=== PATIENT | female | born 1955 | race Caucasian/White ===

== ENCOUNTER → 2017-12-29 11:15 | Outpatient (CLI) | payer BC, SELFPAY ==
--- NOTE | 2017-12-29 | DI.MG.S_ITS ---
BILATERAL DIGITAL SCREENING MAMMOGRAM 3D/2D WITH CAD: 12/29/2017 CLINICAL: Routine screening. Comparison is made to exams dated: 08/01/2015 mammogram, 11/21/2016 mammogram, and 07/04/2014 mammogram - [facility]. There are scattered fibroglandular elements in both breasts. Current study was also evaluated with a Computer Aided Detection (CAD) system. There is a biopsy clip in the right breast. No significant masses, calcifications, or other findings are seen in either breast. There has been no significant interval change. IMPRESSION: NEGATIVE There is no mammographic evidence of malignancy. A 1 year screening mammogram is recommended. This exam was interpreted at Station ID: [id number]. NOTE: For mammograms, a report in lay terms will be sent to the patient. Approximately 15% of breast malignancies will not be visualized mammographically. In the management of a palpable breast mass, a negative mammogram must not discourage biopsy of a clinically suspicious lesion. Electronically Signed By: Conor river/syed:12/29/2017 15:21:27 letter sent: Normal Exam ACR BI-RADS Category 1: Negative 3341F
== END ==
PROVIDERS: PCP Internal Medicine; Visit Provider Internal Medicine
DX: Z12.31 Encounter for screening mammogram for malignant neoplasm of breast (principal)
CPT/HCPCS: 77063; 77067

== ENCOUNTER → 2018-01-30 17:53 | Outpatient (CLI) | payer BC, SELFPAY | PROVIDERS: PCP Internal Medicine; Visit Provider Physician Assistant | DX: N39.0 Urinary tract infection, site not specified (principal) | CPT/HCPCS: 87077; 87086 ==

== ENCOUNTER → 2019-02-05 11:25 | Outpatient (CLI) | payer BC, SELFPAY ==
--- NOTE | 2019-02-05 | DI.MG.S_ITS ---
BILATERAL DIGITAL SCREENING MAMMOGRAM 3D/2D WITH CAD: 02/05/2019 CLINICAL: Routine screening. Comparison is made to exams dated: 12/29/2017 mammogram, 11/21/2016 mammogram, and 08/01/2015 mammogram - [facility]. There are scattered fibroglandular elements in both breasts. Current study was also evaluated with a Computer Aided Detection (CAD) system. There is irregular equal density architectural distortion with an indistinct margin in the right breast middle depth lateral region seen on the craniocaudal view only. No other significant masses, calcifications, or other findings are seen in either breast. IMPRESSION: INCOMPLETE: NEEDS ADDITIONAL IMAGING EVALUATION The irregular equal density architectural distortion in the right breast is indeterminate. Mediolateral and spot compression views as well as additional views with possible ultrasound are recommended. This exam was interpreted at Station ID: [id number]. NOTE: For mammograms, a report in lay terms will be sent to the patient. Approximately 15% of breast malignancies will not be visualized mammographically. In the management of a palpable breast mass, a negative mammogram must not discourage biopsy of a clinically suspicious lesion. Electronically Signed By: Osiel gandhi/syed:02/05/2019 16:51:13 letter sent: Additional Imaging Needed ACR BI-RADS Category 0: Incomplete 3340F
== END ==
PROVIDERS: PCP Internal Medicine; Visit Provider Internal Medicine
DX: Z12.31 Encounter for screening mammogram for malignant neoplasm of breast (principal)
CPT/HCPCS: 77063; 77067

== ENCOUNTER → 2019-02-17 14:22 | Outpatient (CLI) | payer BC, SELFPAY ==
--- NOTE | 2019-02-17 | DI.MG.S_ITS ---
UNILATERAL RIGHT DIGITAL DIAGNOSTIC MAMMOGRAM 3D/2D WITH ADDITIONAL VIEWS: 02/17/2019 CLINICAL: Additional evaluation requested from prior study. Comparison is made to exams dated: 02/05/2019 mammogram, 12/29/2017 mammogram, 11/21/2016 mammogram, 08/01/2015 mammogram, and 07/04/2014 mammogram - [facility]. There are scattered fibroglandular elements in right breast. With additional views, the abnormality seen on screening mammogram is much less prominent, but minimally persists. This area is similar to architecture seen on multiple prior mammograms. No significant masses, calcifications, or other findings are seen in the breast. IMPRESSION: INCOMPLETE: NEEDS ADDITIONAL IMAGING EVALUATION Partial resolution of screening mammography abnormality in the right breast with additional views. Ultrasound evaluation to confirm resolution is recommended and was performed immediately following this exam. This exam was interpreted at Station ID: [id number]. NOTE: For mammograms, a report in lay terms will be sent to the patient. Approximately 15% of breast malignancies will not be visualized mammographically. In the management of a palpable breast mass, a negative mammogram must not discourage biopsy of a clinically suspicious lesion. Electronically Signed By: Ranjana cabrera/:02/17/2019 15:14:21 ACR BI-RADS Category 0: Incomplete 3340F
--- NOTE | 2019-02-17 | DI.US.S_ITS ---
ULTRASOUND OF RIGHT BREAST: 02/17/2019 CLINICAL: Patient returns today to evaluate an architectural distortion in the right breast. Comparison is made to exams dated: 02/17/2019 mammogram, 02/05/2019 mammogram, 12/29/2017 mammogram, and 11/21/2016 mammogram - [facility]. Real-time ultrasound of the right breast was performed. Rose scale images of the real-time examination were reviewed. No abnormalities were seen sonographically in the right breast. IMPRESSION: PROBABLY BENIGN Partial resolution of screening mammography abnormality with additional views. Ultrasound evaluation revealed no sonographic correlate. This area is probably benign. A follow-up mammogram in 6 months is recommended to demonstrate stability. Findings and recommendations were conveyed to the patient at time of exam. This exam was interpreted at Station ID: [id number]. Electronically Signed By: Ranjana cabrera/:02/17/2019 15:15:43 letter sent: Followup Recommended Ultrasound BI-RADS: 3 Probably benign
== END ==
PROVIDERS: PCP Internal Medicine; Visit Provider Internal Medicine
DX: R92.8 Other abnormal and inconclusive findings on diagnostic imaging of breast (principal)
CPT/HCPCS: 76642; 77065; G0279

== ENCOUNTER → 2019-08-19 14:45 | Outpatient (CLI) | payer BC, SELFPAY ==
--- NOTE | 2019-08-19 | DI.MG.S_ITS ---
UNILATERAL RIGHT DIGITAL DIAGNOSTIC MAMMOGRAM 3D/2D SHORT-TERM FOLLOW-UP: 08/19/2019 CLINICAL: Patient returns for a 6 month follow up of the right breast. Comparison is made to exams dated: 02/17/2019 mammogram, 02/05/2019 mammogram, 12/29/2017 mammogram, 02/17/2019 ultrasound, 11/21/2016 mammogram, and 08/01/2015 mammogram - [facility]. There are scattered fibroglandular elements in right breast. There is an irregular equal density asymmetry in the right breast middle depth lateral region seen on the craniocaudal view only is less prominent. Possible architectural distortion associated with the asymmetry is also less prominent. No other significant masses or calcifications are seen in the breast. IMPRESSION: PROBABLY BENIGN The irregular equal density asymmetry in the right breast is less prominent and is probably benign. A follow-up mammogram and possible ultrasound in 6 months is recommended to demonstrate continued stability. This exam was interpreted at Station ID: [id number]. NOTE: For mammograms, a report in lay terms will be sent to the patient. Approximately 15% of breast malignancies will not be visualized mammographically. In the management of a palpable breast mass, a negative mammogram must not discourage biopsy of a clinically suspicious lesion. Electronically Signed By: Tamir Osman M.D. slc/:08/19/2019 16:54:26 letter sent: Followup Recommended ACR BI-RADS Category 3: Probably benign 3343F
== END ==
PROVIDERS: PCP Internal Medicine; Visit Provider Internal Medicine
DX: R92.8 Other abnormal and inconclusive findings on diagnostic imaging of breast (principal); N64.89 Other specified disorders of breast
CPT/HCPCS: 77065; G0279

== ENCOUNTER → 2019-08-20 08:59 | Outpatient (CLI) | payer BC, SELFPAY ==
[2019-08-20 10:11] LABS: Aspartate Aminotransferase 19 IU/L (14-36); BUN Creatinine Ratio 18.6 (6-22); Blood Urea Nitrogen 13 mg/dL (7-17); Calcium 9.7 mg/dL (8.4-10.2); Carbon Dioxide 27 mmol/L (22-32); Chloride 100 mmol/L (98-107); Cholesterol 271 mg/dL (140-199); Estimated Glomerular Filt Rate > 60.0 mL/min (>60); Glucose 90 mg/dL (80-110); HDL Cholesterol 87 mg/dL (40-60); HEMOLYSIS < 15 (0-50); LDL Cholesterol Calculated 170 mg/dL (<100); Potassium 4.5 mmol/L (3.4-5.1); Sodium 137 mmol/L (137-145); Triglycerides 71 mg/dL (35-150)
[2019-08-20 10:28] LABS: TSH w/ Reflex to FT4 1.42 uIU/mL (0.47-4.68)
== END ==
PROVIDERS: PCP Internal Medicine; Visit Provider Internal Medicine
DX: I10 Essential (primary) hypertension (principal); E78.2 Mixed hyperlipidemia; E03.9 Hypothyroidism, unspecified
CPT/HCPCS: 36415; 80048; 80061; 84443; 84450

== ENCOUNTER → 2020-03-22 09:26 | Outpatient (CLI) | payer MEDICARE, BC, SELFPAY ==
--- NOTE | 2020-03-22 09:44 | DI.MG.S_ITS ---
Patient Name: YASMANI GONZALEZ date: 1955 Sex: F Attending Physician: Angel Indications: Date: 03/22/2020 09:37 At the request of: ELIZABETH MARI Procedure: MM diagnostic mammo BI BILATERAL DIGITAL DIAGNOSTIC MAMMOGRAM 3D/2D SHORT-TERM FOLLOW-UP: 03/22/2020 CLINICAL: Patient returns for a 12 month follow up of the right breast, due for bilateral exam. Comparison is made to exams dated: 08/19/2019 mammogram, 02/17/2019 mammogram, and 02/05/2019 mammogram - [facility]. There are scattered fibroglandular elements in both breasts. The previously described irregular equal density asymmetry in the right breast middle depth lateral region seen on the craniocaudal view only appears less prominent and decreased in size. Previously described associated architectural distortion is not appreciated on today's exam. No other significant masses, calcifications, or other findings are seen in either breast. IMPRESSION: INCOMPLETE: NEEDS ADDITIONAL IMAGING EVALUATION The previously described irregular equal density asymmetry in the right breast appears less prominent and is probably benign. However, an ultrasound is recommended for further evaluation and is scheduled to immediately follow this study. This exam was interpreted at Station ID: [id number]. NOTE: For mammograms, a report in lay terms will be sent to the patient. Approximately 15% of breast malignancies will not be visualized mammographically. In the management of a palpable breast mass, a negative mammogram must not discourage biopsy of a clinically suspicious lesion. Electronically Signed By: Tarun Jon M.D. aty/:03/22/2020 10:04:16 ACR BI-RADS Category 0: Incomplete 3340F Continued Report - Page 2 of 2 Patient Name: YASMANI GONZALEZ date: 1955 Sex: F Attending Physician: Angel Indications: Date: 03/22/2020 09:37 At the request of: ELIZABETH MARI Procedure: MM diagnostic mammo BI
--- NOTE | 2020-03-22 10:19 | DI.US.S_ITS ---
Patient Name: YASMANI GONZALEZ date: 1955 Sex: F Attending Physician: Angel Indications: Date: 03/22/2020 10:26 At the request of: ELIZABETH MARI Procedure: US breast RT limited ULTRASOUND OF RIGHT BREAST: 03/22/2020 CLINICAL: Patient returns for a 6 month follow up of the right breast. Comparison is made to exams dated: 03/22/2020 mammogram, 08/19/2019 mammogram, 02/17/2019 ultrasound, 02/17/2019 mammogram, 02/05/2019 mammogram, and 12/29/2017 mammogram - [facility]. Real-time ultrasound of the right breast was performed. Rose scale images of the real-time examination were reviewed. No significant abnormalities were seen sonographically in the right breast. IMPRESSION: BENIGN There is no sonographic evidence of malignancy. There is no abnormality seen in the right breast to correspond with the previously described asymmetry and possible architectural distortion on mammography which likely represent normal fibroglandular tissue. A follow-up mammogram with possible ultrasound in 12 months is recommended. Findings and recommendations were conveyed to the patient during today's visit. This exam was interpreted at Station ID: [id number]. Electronically Signed By: Tarun Jon M.D. aty/:03/22/2020 10:55:37 letter sent: Followup Recommended Ultrasound BI-RADS: 2 Benign Continued Report - Page 2 of 2 Patient Name: YASMANI GONZALEZ date: 1955 Sex: F Attending Physician: Angel Indications: Date: 03/22/2020 10:26 At the request of: ELIZABETH MARI Procedure: US breast RT limited
== END ==
PROVIDERS: PCP Internal Medicine; Referring Provider Internal Medicine; Visit Provider Internal Medicine
DX: R92.8 Other abnormal and inconclusive findings on diagnostic imaging of breast (principal)
CPT/HCPCS: 76642; 77066; G0279

== ENCOUNTER → 2020-08-31 14:44 | Outpatient (ROUT) | payer MEDICARE, BC, SELFPAY ==
[2020-08-31 15:30] LABS: Add Manual Diff / Slide Review NO; Basophils Absolute Auto 100 /uL (0-100); Eosinophils Absolute Auto 100 /uL (0-450); Eosinophils Percent Auto 2.4 % (2-4); Lymphocytes Absolute Auto 1500 /uL (1100-4500); Lymphocytes Percent Auto 24.4 % (25-40); Mean Corpuscular HGB Conc 33.4 % (30-36); Mean Corpuscular Hemoglobin 29.6 PG (26-34); Mean Corpuscular Volume 88.5 fL (80-100); Monocytes Absolute Auto 700 /uL (0-900); Monocytes Percent Auto 10.9 % (3-14); Neutrophils Absolute Auto 3700 /uL (1500-7000); Neutrophils Percent Auto 61.3 % (50-75); Platelet Count 256 X10^3/uL (150-400); Red Blood Cell Count 4.74 X10^6/uL (4.0-5.2); Red Cell Distribution Width 12.5 % (11.6-14.8)
[2020-08-31 15:50] LABS: Aspartate Aminotransferase 28 IU/L (14-36); BUN Creatinine Ratio 20.3 (6-22); Blood Urea Nitrogen 14 mg/dL (7-17); Carbon Dioxide 29 mmol/L (22-32); Chloride 101 mmol/L (98-107); Cholesterol 271 mg/dL (140-199); Estimated Glomerular Filt Rate > 60.0 mL/min (>60); Glucose 97 mg/dL (80-110); HDL Cholesterol 103 mg/dL (40-60); HEMOLYSIS 25 (0-50); LDL Cholesterol Calculated 153 mg/dL (<100); Potassium 5.2 mmol/L (3.4-5.1); Sodium 135 mmol/L (137-145); Triglycerides 73 mg/dL (35-150)
[2020-08-31 16:16] LABS: TSH w/ Reflex to FT4 1.13 uIU/mL (0.47-4.68)
== END ==
PROVIDERS: PCP Internal Medicine; Visit Provider Internal Medicine
DX: I10 Essential (primary) hypertension (principal); E78.2 Mixed hyperlipidemia; E03.9 Hypothyroidism, unspecified
CPT/HCPCS: 80048; 80061; 84443; 84450; 85025

== ENCOUNTER → 2020-09-27 10:09 | Outpatient (CLI) | payer MEDICARE, BC, SELFPAY | PROVIDERS: PCP Internal Medicine; Referring Provider Internal Medicine; Visit Provider Internal Medicine | DX: M85.88 Other specified disorders of bone density and structure, other site (principal); Z78.0 Asymptomatic menopausal state; E07.9 Disorder of thyroid, unspecified; Z82.62 Family history of osteoporosis | CPT/HCPCS: 77080 ==

== ENCOUNTER → 2021-03-06 08:41 | Outpatient (CLI) | payer MEDICARE, BC, SELFPAY ==
--- NOTE | 2021-03-06 | DI.MG.S_ITS ---
BILATERAL DIGITAL DIAGNOSTIC MAMMOGRAM 3D/2D: 03/06/2021 CLINICAL: Short term follow up of the right breast, due for bilateral imaging. Comparison is made to exams dated: 03/22/2020 ultrasound, 03/22/2020 mammogram, 08/19/2019 mammogram, 02/17/2019 mammogram, 12/29/2017 mammogram, and 11/21/2016 mammogram - [facility]. There are scattered fibroglandular elements in both breasts. With additional views, the abnormality seen on screening mammogram is no longer apparent. There is a stable irregular equal density asymmetry in the right breast middle depth lateral region seen on the craniocaudal view only. This was not seen on the prior ultrasounds. No other significant masses, calcifications, or other findings are seen in either breast. IMPRESSION: BENIGN There is no mammographic evidence of malignancy. Asymmetry in the right breast demonstrates long-term stability and is consistent with overlapping fibroglandular tissue and is benign. A 1 year screening mammogram is recommended. Exam findings were conveyed to the patient. This exam was interpreted at Station ID: [id number]. NOTE: For mammograms, a report in lay terms will be sent to the patient. Approximately 15% of breast malignancies will not be visualized mammographically. In the management of a palpable breast mass, a negative mammogram must not discourage biopsy of a clinically suspicious lesion. Electronically Signed By: Tmair Osman M.D. slc/:03/06/2021 10:12:10 letter sent: Normal Exam ACR BI-RADS Category 2: Benign Finding(s) 3342F
== END ==
PROVIDERS: PCP Internal Medicine; Referring Provider Internal Medicine; Visit Provider Internal Medicine
DX: N64.89 Other specified disorders of breast (principal); R92.8 Other abnormal and inconclusive findings on diagnostic imaging of breast
CPT/HCPCS: 77066; G0279

== ENCOUNTER → 2022-03-26 09:59 | Outpatient (CLI) | payer MEDICARE, BC, SELFPAY ==
--- NOTE | 2022-03-26 | DI.MG.S_ITS ---
BILATERAL DIGITAL SCREENING MAMMOGRAM 3D/2D WITH CAD: 03/26/2022 CLINICAL: Routine screening. Comparison is made to exams dated: 03/06/2021 mammogram, 03/22/2020 mammogram, and 02/05/2019 mammogram - [facility]. There are scattered areas of fibroglandular density in both breasts (category b / 25%-50% glandular tissue). Current study was also evaluated with a Computer Aided Detection (CAD) system. There is a biopsy clip in the right breast. No significant masses, calcifications, or other findings are seen in either breast. There has been no significant interval change. IMPRESSION: NEGATIVE There is no mammographic evidence of malignancy. A 1 year screening mammogram is recommended. Based on the Tyrer Cuzick model (a risk assessment model) the patient's lifetime risk is 6.6% and her 10 year risk is 3.5%. According to the ACR, ACS, and NCCN guidelines, an annual breast MRI exam along with mammogram is recommended if the patient's lifetime risk is 20% or greater. This exam was interpreted at Station ID: [id number]. NOTE: For mammograms, a report in lay terms will be sent to the patient. Approximately 15% of breast malignancies will not be visualized mammographically. In the management of a palpable breast mass, a negative mammogram must not discourage biopsy of a clinically suspicious lesion. Electronically Signed By: Ranjana cabrera/syed:03/26/2022 13:03:34 letter sent: Normal Exam ACR BI-RADS Category 1: Negative 3341F
== END ==
PROVIDERS: PCP Internal Medicine; Referring Provider Internal Medicine; Visit Provider Internal Medicine
DX: Z12.31 Encounter for screening mammogram for malignant neoplasm of breast (principal)
CPT/HCPCS: 77063; 77067

== ENCOUNTER → 2023-07-12 09:24 | Outpatient (CLI) | payer MEDICARE, BC, SELFPAY ==
--- NOTE | 2023-07-12 | DI.MG.S_ITS ---
BILATERAL DIGITAL SCREENING MAMMOGRAM 3D/2D WITH CAD: 07/12/2023 CLINICAL: Routine screening. Comparison is made to exams dated: 03/26/2022 mammogram, 03/06/2021 mammogram, 03/22/2020 mammogram, 02/05/2019 mammogram, 02/17/2019 mammogram, and 08/19/2019 mammogram - [facility]. There are scattered areas of fibroglandular density in both breasts (category b / 25%-50% glandular tissue). Current study was also evaluated with a Computer Aided Detection (CAD) system. There is an asymmetry in the right breast anterior depth superior region seen on the mediolateral oblique view only. No other significant masses, calcifications, or other findings are seen in either breast. IMPRESSION: INCOMPLETE: NEEDS ADDITIONAL IMAGING EVALUATION The asymmetry in the right breast is indeterminate. Additional views with possible ultrasound are recommended. Based on the Tyrer Cuzick model (a risk assessment model) the patient's lifetime risk is 6.2% and her 10 year risk is 3.5%. According to the ACR, ACS, and NCCN guidelines, an annual breast MRI exam along with mammogram is recommended if the patient's lifetime risk is 20% or greater. This exam was interpreted at Station ID: [id number]. NOTE: For mammograms, a report in lay terms will be sent to the patient. Approximately 15% of breast malignancies will not be visualized mammographically. In the management of a palpable breast mass, a negative mammogram must not discourage biopsy of a clinically suspicious lesion. Electronically Signed By: Christie salcido/syed:07/14/2023 14:16:13 letter sent: Additional Imaging Needed ACR BI-RADS Category 0: Incomplete 3340F
== END ==
PROVIDERS: PCP Nurse Practitioner; Referring Provider Nurse Practitioner; Visit Provider Nurse Practitioner
DX: Z12.31 Encounter for screening mammogram for malignant neoplasm of breast (principal)
CPT/HCPCS: 77063; 77067

== ENCOUNTER → 2023-07-24 11:44 | Outpatient (CLI) | payer MEDICARE, BC, SELFPAY ==
--- NOTE | 2023-07-24 12:01 | DI.DEXA.S_ITS ---
Bone Density Report Name: YASMANI GONZALEZ Age: 68 Sex: Female Ethnicity: White Date of : 1955 Indication: osteopenia; prior fracture; Referring Provider: ASCENCION CONTRERAS Study: Bone densitometry was performed. Exam Date: July 24, 2023 Accession number: [id number] Bone Density: Region BMD T-score Z-score Classification AP Spine(L1, L2, L4) 0.781 -2.3 -0.3 Osteopenia Femoral Neck (Left) 0.608 -2.2 -0.5 Osteopenia Total Hip (Left) 0.767 -1.4 0.0 Osteopenia Femoral Neck (Right) 0.599 -2.2 -0.5 Osteopenia Total Hip (Right) 0.733 -1.7 -0.3 Osteopenia Total Hip Mean 0.750 -1.6 -0.2 Osteopenia World Health Organization criteria for BMD impression classify patients as: Normal (T-score at or above -1.0), Osteopenia (T-score between -1.0 and -2.5), or Osteoporosis (T-score at or below -2.5). 10-year Fracture Risk: FRAX not reported because: Prior hip or vertebral fracture Previous Exams: -- Region Exam Age BMD T-score BMD Change BMD Change Date g/cm2 vs Baseline vs Previous -- AP Spine (L1-L2,L4) 07/24/2023 68 0.781 -2.3 -0.099 (-11.2%)# -0.056 (-6.7%)# 09/27/2020 65 0.837 -1.8 -0.043 (-4.8%)* -0.043 (-4.8%)* 08/01/2005 50 0.880 -1.4 Total Hip(Left) 07/24/2023 68 0.767 -1.4 -0.117 (-13.2%)# -0.040 (-5.0%)# 09/27/2020 65 0.807 -1.1 -0.077 (-8.7%)* -0.077 (-8.7%)* 08/01/2005 50 0.883 -0.5 Total Hip(Right) 07/24/2023 68 0.733 -1.7 -0.146 (-16.7%)# -0.044 (-5.7%)# 09/27/2020 65 0.777 -1.4 -0.102 (-11.6%)* -0.102 (-11.6%)* 08/01/2005 50 0.879 -0.5 -- *Denotes significance at 95% confidence level, LSC for AP Spine = 0.022 g/cm2, LSC for Total Hip = 0.027 g/cm2 Rate of change results reflect vertebral levels common to all scans # Denotes dissimilar scan types or analysis methods Impression: The patient has low bone mass, based on the Total Spine T-score. The patient has risk factors, including: previous fracture. No significant bone loss was observed. Discussion: INCREASED RISK OF FRACTURE DUE TO HISTORY OF FRACTURE. The patient's previous fracture puts the patient at high risk of a future fracture. In untreated patients, the risk of osteoporotic fracture increases approximately two-fold for each 1.0 SD decrease in T-score. Low bone density is not the only risk factor for fracture; also consider factors such as patient's age, frailty or poor health, risk of falling, risk of injury, previous osteoporotic fracture, family history of osteoporosis, cigarette smoking, low body weight, etc. Not everyone with a low trauma fracture has osteoporosis; osteomalacia and other metabolic bone disorders should also be considered. Patients who have osteoporosis should be evaluated for specific diseases and conditions (secondary causes) that may cause or contribute to bone loss and fracture risk. National Osteoporosis Foundation (NOF) recommends pharmacologic intervention for patients with a prior hip or vertebral fracture regardless of BMD T-score. The patient should follow a healthful lifestyle (good nutrition with adequate calcium and vitamin D, and appropriate weight-bearing exercise). Follow-Up: Consider a repeat BMD and Vertebral Fracture Assessment (VFA) exam in 2 years or sooner if medically necessary, to reassess this patient's status. Reported by: FRANSISCA RUIZ M.D. on 07/24/2023 12:09:00 PM.
== END ==
PROVIDERS: PCP Nurse Practitioner; Referring Provider Nurse Practitioner; Visit Provider Nurse Practitioner
DX: M85.88 Other specified disorders of bone density and structure, other site (principal); Z78.0 Asymptomatic menopausal state; Z87.311 Personal history of (healed) other pathological fracture
CPT/HCPCS: 77080

== ENCOUNTER → 2023-07-25 08:44 | Outpatient (CLI) | payer MEDICARE, BC, SELFPAY ==
--- NOTE | 2023-07-25 08:45 | DI.MG.S_ITS ---
UNILATERAL RIGHT DIGITAL DIAGNOSTIC MAMMOGRAM 3D/2D WITH ADDITIONAL VIEWS: 07/25/2023 CLINICAL: Additional evaluation requested from prior study. Comparison is made to exams dated: 07/12/2023 mammogram, 03/26/2022 mammogram, 03/06/2021 mammogram, and 03/22/2020 mammogram - [facility]. 12/29/2017 There are scattered areas of fibroglandular density in the right breast (category b / 25%-50% glandular tissue). There is a mass in the right breast seen on the craniocaudal view only. There also is an asymmetry in the right breast anterior depth superior region seen on the mediolateral oblique view only. This is less prominent. No other significant masses or calcifications are seen in the breast. IMPRESSION: INCOMPLETE: NEEDS ADDITIONAL IMAGING EVALUATION The asymmetry in the right breast anterior depth superior region seen on the mediolateral oblique view only is indeterminate. An ultrasound is recommended. This is less prominent on additional views and also similar compared to 2018 mammogram. Based on the Tyrer Cuzick model (a risk assessment model) the patient's lifetime risk is 6.2% and her 10 year risk is 3.5%. According to the ACR, ACS, and NCCN guidelines, an annual breast MRI exam along with mammogram is recommended if the patient's lifetime risk is 20% or greater. This exam was interpreted at Station ID: [id number]. NOTE: For mammograms, a report in lay terms will be sent to the patient. Approximately 15% of breast malignancies will not be visualized mammographically. In the management of a palpable breast mass, a negative mammogram must not discourage biopsy of a clinically suspicious lesion. Electronically Signed By: Alfredo Jorge M.D. lc/:07/25/2023 09:40:50 ACR BI-RADS Category 0: Incomplete 3340F
--- NOTE | 2023-07-25 08:45 | DI.US.S_ITS ---
PROCEDURE: US BREAST RT LIMITED COMPARISON: [facility], BREAST RT LIMITED, 03/22/2020, 10:19. INDICATIONS: abnormal mammogram, right breast FINDINGS: IMPRESSION: Dictated by: Alfredo Jorge M.D. on 07/25/2023 at 9:41 Approved by: Alfredo Jorge M.D. on 07/25/2023 at 9:41
--- NOTE | 2023-07-25 09:26 | DI.US.S_ITS ---
Patient Name: YASMANI GONZALEZ date: 1955 Sex: F Attending Physician: Balta Indications: Date: 07/25/2023 09:41 At the request of: ASCENCION CONTRERAS Procedure: US breast RT limited ULTRASOUND OF RIGHT BREAST: 07/25/2023 CLINICAL: Patient returns today to evaluate a focal asymmetry in the right breast. Comparison is made to exams dated: 07/25/2023 mammogram, 07/12/2023 mammogram, 03/26/2022 mammogram, and 03/06/2021 mammogram - [facility]. Color flow and real-time ultrasound of the right breast were performed. Rose scale images of the realtime examination were reviewed. No significant abnormalities were seen sonographically in the right breast. IMPRESSION: NEGATIVE There is no sonographic evidence of malignancy. There is no abnormality seen in the right breast to correspond with the mammography finding. Return to annual mammogram screening schedule is recommended. This exam was interpreted at Station ID: [id number]. Electronically Signed By: Alfredo Jorge M.D. lc/:07/25/2023 09:41:43 letter sent: Normal Exam Ultrasound BI-RADS: 1 Negative
== END ==
PROVIDERS: PCP Nurse Practitioner; Referring Provider Nurse Practitioner; Visit Provider Nurse Practitioner
DX: R92.8 Other abnormal and inconclusive findings on diagnostic imaging of breast (principal); N64.89 Other specified disorders of breast
CPT/HCPCS: 76642; 77065; G0279

== ENCOUNTER → 2023-10-21 09:23 | Outpatient (CLI) | payer MEDICARE, BC, SELFPAY ==
[2023-10-21 10:51] LABS: Alanine Aminotransferase 24 IU/L (<35); Albumin 4.4 g/dL (3.5-5.0); Albumin Globulin Ratio 1.5 (1.0-2.8); Alkaline Phosphatase 47 U/L (38-126); Aspartate Aminotransferase 25 IU/L (14-36); Bilirubin Total 0.7 mg/dL (0.2-1.3); Blood Urea Nitrogen 12 mg/dL (7-17); Calcium 9.4 mg/dL (8.4-10.2); Carbon Dioxide 27 mmol/L (22-32); Chloride 103 mmol/L (98-107); Cholesterol 173 mg/dL (140-199); Estimated Glomerular Filt Rate > 60 mL/min (>60); Glucose 95 mg/dL (80-110); HDL Cholesterol 94 mg/dL (40-60); HEMOLYSIS < 15 (0-50); LDL Cholesterol Calculated 67 mg/dL (<100); Potassium 4.5 mmol/L (3.4-5.1); Sodium 136 mmol/L (137-145); Total Protein 7.4 g/dL (6.3-8.2); Triglycerides 61 mg/dL (35-150)
[2023-10-21 11:05] LABS: Thyroid Stimulating Hormone 0.425 uIU/mL (0.47-4.68)
== END ==
LOC: LAB 09:24
PROVIDERS: PCP Nurse Practitioner; Referring Provider Nurse Practitioner; Visit Provider Nurse Practitioner
DX: E03.0 Congenital hypothyroidism with diffuse goiter (principal); E78.5 Hyperlipidemia, unspecified; R03.0 Elevated blood-pressure reading, without diagnosis of hypertension; E03.9 Hypothyroidism, unspecified
CPT/HCPCS: 36415; 80053; 80061; 84443

== ENCOUNTER → 2024-02-12 07:54 | Outpatient (CLI) | payer MEDICARE, BC, SELFPAY ==
--- NOTE | 2024-02-12 07:57 | DI.ECHO.S_ITS ---
[facility] : : [address] : : [place] : : [id number] : : Phone: [phone] Echocardiogram Report + + :Name: YASMANI GONZALEZ Study Date: 02/12/2024 Height: 66 in : :[facility] ReadingLocation: Weight: 140 lb : : Gender: Female BSA: 1.7 m2 : :: 1955 Age: 69 yrs BP: 133/86 mmHg: :Reason For Study: HYPERTENSION : :Ordering Physician: BEN, : :ASCENCION Performed By: Kay Merrill : :Referring: ASCENCION CONTRERAS : + + Interpretation Summary The ejection fraction is estimated to be 55-60%. Procedure: A two-dimensional transthoracic echocardiogram with color flow and Doppler was performed. The study quality was technically adequate. There is no prior echocardiogram noted for this patient. The patient was in sinus rhythm with heart rates between 67-75 bpm during the exam. Left Ventricle: The left ventricle is normal in size and wall thickness. The ejection fraction is estimated to be 55-60%. Left ventricular wall motion is normal. Right Ventricle: The right ventricle is normal in size and function. Atria: The left atrium is severely dilated. Right atrial size is normal. There is no Doppler evidence for an interatrial shunt. Mitral Valve: The mitral valve leaflets appear mildly thickened, but open well. There is mild to moderate mitral annular calcification. There is mild mitral regurgitation. Aortic Valve: The aortic valve is trileaflet. The aortic valve opens well. There is no aortic valve stenosis. There is trace aortic regurgitation. Tricuspid Valve: The tricuspid valve is normal in structure and function. There is mild tricuspid regurgitation. The right ventricular systolic pressure is estimated to be at least 16 mmHg based on an estimated right atrial pressure of 3 mm Hg. Pulmonic Valve: The pulmonic valve leaflets are thin and pliable; valve motion is normal. There is trace pulmonic regurgitation. Great Vessels: The aortic root is normal size. The dimensions of the ascending aorta are normal. The IVC is of normal diameter and collapses greater than 50% with a sniff. This suggests a low right atrial pressure of 3 mm Hg. Pericardium/ Pleura There is no pericardial effusion. There is no pleural effusion. MMode/2D Measurements & Calculations LVIDd: 4.5 cm LVOT diam: 2.0 cm LVIDs: 3.3 cm Ao root diam: 2.8 cm FS: 27.2 % asc Aorta Diam: 3.1 cm IVSd: 0.62 cm Ao Arch Diam (Prox Trans): 2.3 cm LVPWd: 0.97 cm LV heath. diameter/BSA (cm/m^2): 2.6 LV sys. diameter/BSA (cm/m^2): 1.9 LA A2 area: 24.7 cm2 RA long axis: 5.2 cm LA A4 area: 24.8 cm2 RA area: 15.5 cm2 LA length (vol): 5.5 cm RA vol: 39.3 ml LA vol: 94.1 ml RA : 22.9 ml/m2 LA vol index: 54.7 ml/m2 IVC diam: 2.0 cm RVD1 (basal): 3.0 cm RVD2 (mid): 2.4 cm TAPSE: 1.7 cm Doppler Measurements & Calculations Ao V2 max: 118.1 cm/sec LVOT Max Donovan: 107.0 cm/sec Ao V2 mean: 79.3 cm/sec LV V1 max P.6 mmHg Ao max P.6 mmHg LV V1 VTI: 22.5 cm Ao mean P.8 mmHg HARMEET(I,D): 2.7 cm2 Ao V2 VTI: 25.4 cm HARMEET(V,D): 2.7 cm2 sev ratio: 0.89 HARMEET indexed to BSA (cm^2/m^2): 1.5 MV E max donovan: 76.7 cm/sec TR max donovan: 180.3 cm/sec MV A max donovan: 53.8 cm/sec TR max P.0 mmHg MV E/A: 1.4 PA V2 max: 86.8 cm/sec Med Peak E' Donovan: 6.7 cm/sec PA V2 mean: 60.2 cm/sec E/E' med: 11.4 PA mean P.6 mmHg Lat Peak E' Donovan: 9.3 cm/sec PA pr(Accel): 19.1 mmHg E/E' lat: 8.2 E/e' average: 9.8 MV dec time: 0.13 sec SV(LVOT): 67.4 ml Reading Physician:11:52 AM
--- NOTE | 2024-02-12 07:59 | EKG_ITS ---
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
[2024-02-12 11:21] LABS: Creatinine Urine Random 42.81 mg/dL
[2024-02-12 11:26] LABS: Microalbumin Urine Random < 0.6 mg/dL (0-1.6)
[2024-02-12 11:39] LABS: Thyroid Stimulating Hormone 1.64 uIU/mL (0.47-4.68)
[2024-02-12 13:22] LABS: Alanine Aminotransferase 29 IU/L (<35); Albumin 4.5 g/dL (3.5-5.0); Albumin Globulin Ratio 1.9 (1.0-2.8); Alkaline Phosphatase 51 U/L (38-126); Aspartate Aminotransferase 29 IU/L (14-36); BUN Creatinine Ratio 14.1 (6-22); Bilirubin Total 0.6 mg/dL (0.2-1.3); Blood Urea Nitrogen 9 mg/dL (7-17); Calcium 9.5 mg/dL (8.4-10.2); Carbon Dioxide 26 mmol/L (22-32); Chloride 102 mmol/L (98-107); Cholesterol 150 mg/dL (140-199); Estimated Glomerular Filt Rate > 60 mL/min (>60); Globulin 2.4 g/dL (1.7-4.1); Glucose 91 mg/dL (80-110); HDL Cholesterol 106 mg/dL (40-60); HEMOLYSIS < 15 (0-50); LDL Cholesterol Calculated 33 mg/dL (<100); Potassium 5.9 mmol/L (3.4-5.1); Sodium 135 mmol/L (137-145); Total Protein 6.9 g/dL (6.3-8.2); Triglycerides 56 mg/dL (35-150)
== END ==
LOC: ECHO 07:55
PROVIDERS: PCP Nurse Practitioner; Referring Provider Nurse Practitioner; Visit Provider Nurse Practitioner
DX: I08.1 Rheumatic disorders of both mitral and tricuspid valves (principal); I10 Essential (primary) hypertension; E03.9 Hypothyroidism, unspecified; E78.5 Hyperlipidemia, unspecified; Z79.899 Other long term (current) drug therapy
CPT/HCPCS: 80053; 80061; 82043; 82570; 84443; 93005; 93306

== ENCOUNTER → 2024-08-19 11:54 | Outpatient (CLI) | payer MEDICARE, SELFPAY ==
--- NOTE | 2024-08-19 11:57 | DI.MG.S_ITS ---
BILATERAL DIGITAL SCREENING MAMMOGRAM 3D/2D WITH CAD: 08/19/2024 CLINICAL: Routine screening. Comparison is made to exams dated: 07/12/2023 mammogram, 03/26/2022 mammogram, and 03/06/2021 mammogram - [facility]. There are scattered areas of fibroglandular density (category b / 25%-50% glandular tissue). Current study was also evaluated with a Computer Aided Detection (CAD) system. No significant masses, calcifications, or other findings are seen in either breast. There has been no significant interval change. IMPRESSION: NEGATIVE There is no mammographic evidence of malignancy. A 1 year screening mammogram is recommended. Based on the Tyrer Cuzick model (a risk assessment model) the patient's lifetime risk is 5.9% and her 10 year risk is 3.5%. According to the ACR, ACS, and NCCN guidelines, an annual breast MRI exam along with mammogram is recommended if the patient's lifetime risk is 20% or greater. This exam was interpreted at Station ID: [id number]. NOTE: For mammograms, a report in lay terms will be sent to the patient. Approximately 15% of breast malignancies will not be visualized mammographically. In the management of a palpable breast mass, a negative mammogram must not discourage biopsy of a clinically suspicious lesion. Electronically Signed By: Tarun moscoso/syed:08/19/2024 16:02:37 letter sent: Normal Exam ACR BI-RADS Category 1: Negative
== END ==
PROVIDERS: PCP Family Medicine; Referring Provider Family Medicine; Visit Provider Family Medicine
DX: Z12.31 Encounter for screening mammogram for malignant neoplasm of breast (principal)
CPT/HCPCS: 77063; 77067